=== PATIENT | male | born 1970 | race Caucasian/White ===

== ENCOUNTER 2016-12-12 12:54 | Emergency (ER) | payer OTHER ==
[~2016-12-12] VITALS: Ht 172.7 cm; Wt 68.0 kg
[~2016-12-12 12:54] MED LIST: CIPRODEX 0.3%-7.5 ML OT; KEFLEX500 MG PO; NOVOLIN 701 UNIT/0.0 SC; TRAMADOL HCL50 MG PO
[2016-12-12] MEDS ORDERED: Motrin,Rufen800 MG PO (15:01)
== END 2016-12-12 15:06 | disposition home or self-care (01) ==
LOC: ED 12:54
DX: S80.01XA Contusion of right knee, initial encounter (principal); F17.200 Nicotine dependence, unspecified, uncomplicated; Z88.1 Allergy status to other antibiotic agents; Z88.8 Allergy status to other drugs, medicaments and biological substances; Z79.4 Long term (current) use of insulin; W18.00XA Striking against unspecified object with subsequent fall, initial encounter; Y93.89 Activity, other specified; Y92.9 Unspecified place or not applicable; Y99.9 Unspecified external cause status

== ENCOUNTER 2017-09-29 10:42 | Emergency (ER) | payer BC ==
[~2017-09-29] VITALS: Ht 175.2 cm
[~2017-09-29 10:42] MED LIST changes: +Motrin,Rufen800 MG PO
[2017-09-29 11:39] LABS: HEMATOCRIT 45.1 % (42.0-52.0); HEMOGLOBIN 14.5 g/dl (14.0-18.0); MEAN CELL VOLUME 86.1 fl (80.0-94.0); MEAN CORPUSCULAR HGB 27.7 pg (27.0-31.0); MEAN CORPUSCULAR HGB CONC 32.2 g/dl (33.0-37.0); MEAN PLATELET VOLUME 10.4 fl (9.6-12.3); PLATELET COUNT AUTOMATED 121 10*3/uL (130-400); RED BLOOD COUNT 5.24 10*6/uL (4.50-5.90); RED CELL DISTRI WIDTH 12.3 % (0-14.5); WHITE BLOOD COUNT 5.2 10*3/uL (4.8-10.8)
[2017-09-29 11:51] LABS: ALBUMIN 3.5 gm/dl (3.1-4.5); ALKALINE PHOSPHATASE 85 U/L (45-117); BUN 11 mg/dl (7-24); CHLORIDE 100 mmol/L (98-107); CREATININE 0.94 mg/dL (0.70-1.30); SGOT/AST 31 IU/L (3-35); SGPT/ALT 61 U/L (12-78); SODIUM 134 mmol/L (136-145); TOTAL PROTEIN 7.7 gm/dL (6.4-8.2)
[2017-09-29 12:01] LABS: TOTAL CELLS COUNTED 100 #CELLS
[2017-09-29 12:02] LABS: BURR CELLS FEW; PLATELET SUFFICIENCY LOW (NORMAL)
[2017-09-29] MEDS ORDERED: PREDNISONE20 M1 PO (13:09)
[2017-09-29] MEDS ORDERED: DOXYCYCLINE100 M3 PO ×2 (13:09→13:10)
[2017-09-29] MEDS ORDERED: TESSALON PERLE100 M1 PO (13:09)
[2017-09-29] MEDS ORDERED: PROVENTIL HFA6.7 GM INH (13:09)
== END 2017-09-29 13:21 | disposition home or self-care (01) ==
LOC: ED 10:42
PROVIDERS: Physician Assistant
DX: J44.1 Chronic obstructive pulmonary disease with (acute) exacerbation (principal); J40 Bronchitis, not specified as acute or chronic; Z79.899 Other long term (current) drug therapy; Z88.8 Allergy status to other drugs, medicaments and biological substances; Z88.1 Allergy status to other antibiotic agents

== ENCOUNTER 2018-03-08 17:08 | Emergency (ER) | payer BC ==
[~2018-03-08] VITALS: Ht 175.2 cm; Wt 74.8 kg
[~2018-03-08 17:08] MED LIST changes: +DOXYCYCLINE100 M3 PO; +PREDNISONE20 M1 PO; +PROVENTIL HFA6.7 GM INH; +TESSALON PERLE100 M1 PO
[2018-03-08 17:54] LABS: BASO % 0.4 % (0.0-1.0); EOS # 0.1 10*3/uL (0.0-0.4); EOS % 0.7 % (1.0-4.0); HEMATOCRIT 43.5 % (42.0-52.0); HEMOGLOBIN 14.8 g/dl (14.0-18.0); LYMPH # 1.8 10*3/uL (1.3-4.4); LYMPH % 26.7 % (27.0-41.0); MEAN CELL VOLUME 84.5 fl (80.0-94.0); MEAN CORPUSCULAR HGB 28.7 pg (27.0-31.0); MEAN PLATELET VOLUME 9.2 fl (9.6-12.3); MONO # 0.7 10*3/uL (0.1-1.0); MONO % 10.1 % (3.0-9.0); NEUT # 4.1 10*3/uL (2.3-7.9); NEUT % 61.8 % (47.0-73.0); PLATELET COUNT AUTOMATED 229 10*3/uL (130-400); RED BLOOD COUNT 5.15 10*6/uL (4.50-5.90); WHITE BLOOD COUNT 6.7 10*3/uL (4.8-10.8)
[2018-03-08 18:06] LABS: ACT PARTIAL THROMBO TIME 22.3 SECONDS (20.8-31.5)
[2018-03-08 18:09] LABS: ALBUMIN 4.2 gm/dl (3.1-4.5); ALKALINE PHOSPHATASE 88 U/L (45-117); BUN 13 mg/dl (7-24); CHLORIDE 98 mmol/L (98-107); CREATININE 0.99 mg/dL (0.70-1.30); LIPASE 77 U/L (73-393); POTASSIUM 4.4 mmol/L (3.5-5.1); SGOT/AST 32 IU/L (3-35); SGPT/ALT 74 U/L (12-78); SODIUM 135 mmol/L (136-145); TOTAL PROTEIN 8.1 gm/dL (6.4-8.2)
[2018-03-08] MEDS ORDERED: Zofran4 MG SL (18:31)
[2018-03-08 19:23] LABS: BILIRUBIN NEGATIVE (NEGATIVE); BLOOD NEGATIVE (NEGATIVE); CLARITY CLEAR (CLEAR); COLOR YELLOW (YELLOW); GLUCOSE NEGATIVE (NEGATIVE); KETONE NEGATIVE (NEGATIVE); LEUKO ESTERASE NEGATIVE (NEGATIVE); NITRITE NEGATIVE (NEGATIVE); UROBILINOGEN 0.2 E.U./dl (0.2-1.0); WBC 0-2 wbc/hpf (0-5)
== END 2018-03-08 19:45 | disposition home or self-care (01) ==
LOC: ED 17:08
PROVIDERS: Nurse Practitioner Family
DX: K52.9 Noninfective gastroenteritis and colitis, unspecified (principal); R10.13 Epigastric pain; R10.12 Left upper quadrant pain; Z88.1 Allergy status to other antibiotic agents; Z88.8 Allergy status to other drugs, medicaments and biological substances; Z79.899 Other long term (current) drug therapy

== ENCOUNTER 2018-05-24 10:51 | Inpatient (IN) | payer BC ==
[2018-05-24] VITALS (7 sets, daily range): BP systolic 117–146; BP diastolic 70–80
[~2018-05-24] VITALS: Ht 175.3 cm; Wt 70.8 kg
--- NOTE | ~2018-05-24 | EKG ---
[place], [place] ELECTROCARDIOGRAM REPORT NAME: STELLA SALMON UNIT #: [id number] ROOM: 404 DOCTOR: KIRSTY DRAFT REPORT BIRTHDATE: [birth year] [facility] Test Date: 2018-05-24 Test Time: 11:15:41 Pat Name: STELLA SALMON Department: Room: 404 Gender: M Rn Endocrinology: : 1970 Requested By: MARYANN KRISHNA Order Number: [id number] Reading MD: Ha Burns MD Measurements Intervals [place] Rate: 96 P: 55 [place]: 147 QRS: 76 QRSD: 86 T: 53 QT: 335 QTc: 424 Interpretive Statements Sinus rhythm ST elev, probable normal early repol pattern Electronically Signed On 05-24-2018 18:21:23 PST by Ha Burns MD CM:EKGRPT:ELECTROCARDIOGRAM REPORT [id number] 1821 MARYANN TOWNSEND DRAFT REPORT MARYANN KRISHNA DO
--- NOTE | ~2018-05-24 | EKG ---
[place], [place] ELECTROCARDIOGRAM REPORT NAME: STELLA SALMON UNIT #: [id number] ROOM: 404 DOCTOR: KIRSTY DRAFT REPORT BIRTHDATE: [birth year] [facility] Test Date: 2018-05-24 Test Time: 19:01:02 Pat Name: STELLA SALMON Department: Room: [facility] Gender: M Pot Fireman: Hilary Mack : 1970 Requested By: ADELFO SAWYER Order Number: [id number] Reading MD: Ha Burns MD Measurements Intervals [place] Rate: 67 P: 53 CT: 155 QRS: 66 QRSD: 86 T: 49 QT: 376 QTc: 397 Interpretive Statements Sinus rhythm No change from earlier ECG this date Electronically Signed On 05-24-2018 18:31:42 PST by Ha Burns MD CM:EKGRPT:ELECTROCARDIOGRAM REPORT 00 1831 ADELFO TOWNSEND DRAFT REPORT ADELFO SAWYER DO
--- NOTE | ~2018-05-24 | EKG ---
[place], [place] ELECTROCARDIOGRAM REPORT NAME: STELLA SALMON UNIT #: [id number] ROOM: 404 DOCTOR: KIRSTY DRAFT REPORT BIRTHDATE: [birth year] [facility] Test Date: 2018-05-24 Test Time: 16:49:00 Pat Name: STELLA SALMON Department: Room: [facility] 1 Gender: M Vocational Examiner: LONNIE : 1970 Requested By: ADELFO SAWYER Order Number: [id number] Reading MD: Ha Burns MD Measurements Intervals [place] Rate: 67 P: 59 [place]: 150 QRS: 68 QRSD: 92 T: 58 QT: 386 QTc: 408 Interpretive Statements Sinus rhythm No change from earlier ECG this date Electronically Signed On 05-24-2018 18:29:13 PST by Ha Burns MD CM:EKGRPT:ELECTROCARDIOGRAM REPORT [id number] 1829 ADELFO TOWNSEND DRAFT REPORT ADELFO SAWYER DO
[~2018-05-24 10:51] MED LIST changes: +Zofran4 MG SL
[2018-05-24] MEDS ORDERED: TRULICITY0.75 MG/0. SC (11:08)
[2018-05-24] MEDS ORDERED: PANTOPRAZOLE SO40 MG PO (11:10)
[2018-05-24 11:25] LABS: BASO % 0.6 % (0.0-1.0); EOS # 0.1 10*3/uL (0.0-0.4); HEMATOCRIT 46.8 % (42.0-52.0); HEMOGLOBIN 15.7 g/dl (14.0-18.0); LYMPH # 1.8 10*3/uL (1.3-4.4); LYMPH % 24.7 % (27.0-41.0); MEAN CELL VOLUME 85.9 fl (80.0-94.0); MEAN CORPUSCULAR HGB 28.8 pg (27.0-31.0); MEAN CORPUSCULAR HGB CONC 33.5 g/dl (33.0-37.0); MEAN PLATELET VOLUME 9.9 fl (9.6-12.3); MONO # 0.6 10*3/uL (0.1-1.0); MONO % 8.7 % (3.0-9.0); NEUT # 4.7 10*3/uL (2.3-7.9); NEUT % 64.7 % (47.0-73.0); PLATELET COUNT AUTOMATED 212 10*3/uL (130-400); RED BLOOD COUNT 5.45 10*6/uL (4.50-5.90); RED CELL DISTRI WIDTH 11.7 % (0-14.5); WHITE BLOOD COUNT 7.3 10*3/uL (4.8-10.8)
[2018-05-24 11:34] LABS: ACT PARTIAL THROMBO TIME 22.4 SECONDS (20.8-31.5)
[2018-05-24 11:41] LABS: ALBUMIN 4.1 gm/dl (3.1-4.5); ALKALINE PHOSPHATASE 92 U/L (45-117); BUN 15 mg/dl (7-24); CHLORIDE 102 mmol/L (98-107); CREATININE 1.16 mg/dL (0.70-1.30); LIPASE 71 U/L (73-393); SGOT/AST 27 IU/L (3-35); SGPT/ALT 58 U/L (12-78); SODIUM 137 mmol/L (136-145); TOTAL PROTEIN 7.9 gm/dL (6.4-8.2)
[2018-05-24 11:42] LABS: TROPONIN I < 0.015 ng/ml (<0.045)
[2018-05-24 19:07] LABS: BILIRUBIN NEGATIVE (NEGATIVE); BLOOD NEGATIVE (NEGATIVE); CLARITY CLEAR (CLEAR); COLOR YELLOW (YELLOW); GLUCOSE NEGATIVE (NEGATIVE); KETONE NEGATIVE (NEGATIVE); LEUKO ESTERASE NEGATIVE (NEGATIVE); NITRITE NEGATIVE (NEGATIVE); UROBILINOGEN 0.2 E.U./dl (0.2-1.0)
[2018-05-24 19:13] LABS: BACTERIA 1+; RBC 0-2 rbc/hpf (0-2)
[2018-05-25] VITALS: BP 102/60
[2018-05-25 06:43] LABS: BASO # 0.1 10*3/uL (0.0-0.1); BASO % 1.3 % (0.0-1.0); EOS # 0.1 10*3/uL (0.0-0.4); EOS % 1.9 % (1.0-4.0); HEMOGLOBIN 13.2 g/dl (14.0-18.0); MEAN CELL VOLUME 87.1 fl (80.0-94.0); MEAN CORPUSCULAR HGB 28.8 pg (27.0-31.0); MEAN PLATELET VOLUME 10.5 fl (9.6-12.3); MONO # 0.5 10*3/uL (0.1-1.0); MONO % 9.4 % (3.0-9.0); NEUT # 2.2 10*3/uL (2.3-7.9); NEUT % 46.2 % (47.0-73.0); PLATELET COUNT AUTOMATED 178 10*3/uL (130-400); RED BLOOD COUNT 4.59 10*6/uL (4.50-5.90); RED CELL DISTRI WIDTH 11.5 % (0-14.5); WHITE BLOOD COUNT 4.8 10*3/uL (4.8-10.8)
[2018-05-25 07:14] LABS: ACT PARTIAL THROMBO TIME 23.6 SECONDS (20.8-31.5)
[2018-05-25 07:17] LABS: ALBUMIN 3.1 gm/dl (3.1-4.5); ALKALINE PHOSPHATASE 70 U/L (45-117); BUN 15 mg/dl (7-24); CHLORIDE 111 mmol/L (98-107); CHOLESTEROL 150 mg/dL (<200); CREATININE 0.85 mg/dL (0.70-1.30); FREE T4 0.92 ng/dl (0.76-1.46); HDL CHOLESTEROL 27 mg/dl (40-60); LDL CHOLESTEROL 102 mg/dL (9-159); PHOSPHOROUS 2.9 mg/dL (2.5-4.9); POTASSIUM 4.3 mmol/L (3.5-5.1); SGOT/AST 19 IU/L (3-35); SGPT/ALT 43 U/L (12-78); SODIUM 142 mmol/L (136-145); TOTAL PROTEIN 6.2 gm/dL (6.4-8.2); TRIGLYCERIDES 103 mg/dl (<150); VLDL CHOLESTEROL 21 mg/dL (6-40)
[2018-05-25 07:36] LABS: VITAMIN D, 25-HYDROXY 14.6 ng/mL (30-100)
[2018-05-25 11:57] VITALS: BP 110/63
== END 2018-05-25 13:27 | disposition home or self-care (01) | DRG 205 ==
LOC: ED 10:51 → EDHOLD 15:26 → 4E 15:26
PROVIDERS: Emergency Medicine; Internal Medicine
DX: M94.0 Chondrocostal junction syndrome [Tietze] (principal); J18.9 Pneumonia, unspecified organism; E87.2 Acidosis; R11.2 Nausea with vomiting, unspecified; R19.7 Diarrhea, unspecified; H66.90 Otitis media, unspecified, unspecified ear; E83.41 Hypermagnesemia; K21.9 Gastro-esophageal reflux disease without esophagitis; F41.9 Anxiety disorder, unspecified; E78.5 Hyperlipidemia, unspecified; R10.84 Generalized abdominal pain; E86.0 Dehydration; D72.810 Lymphocytopenia; E11.65 Type 2 diabetes mellitus with hyperglycemia; Z87.891 Personal history of nicotine dependence; Z82.49 Family history of ischemic heart disease and other diseases of the circulatory system; Z81.1 Family history of alcohol abuse and dependence; Z88.8 Allergy status to other drugs, medicaments and biological substances; Z79.899 Other long term (current) drug therapy; Z79.4 Long term (current) use of insulin

== ENCOUNTER 2019-06-19 13:56 | Emergency (ER) | payer BC ==
[~2019-06-19] VITALS: Ht 175.2 cm; Wt 72.6 kg
[~2019-06-19 13:56] MED LIST changes: +PANTOPRAZOLE SO40 MG PO; +TRULICITY0.75 MG/0. SC
[2019-06-19] MEDS ORDERED: PREDNISONE20 M1 PO (16:02)
== END 2019-06-19 16:16 | disposition home or self-care (01) ==
LOC: ED 13:56
DX: J44.1 Chronic obstructive pulmonary disease with (acute) exacerbation (principal); R11.0 Nausea; Z88.1 Allergy status to other antibiotic agents; Z88.8 Allergy status to other drugs, medicaments and biological substances; Z79.899 Other long term (current) drug therapy; Z87.891 Personal history of nicotine dependence

== ENCOUNTER → 2019-07-06 | Outpatient (CLI) | payer BC ==
[2019-07-07 10:08] LABS: CREATININE,URINE 73.8 mg/dL (Not Estab.); MICRO ALBUMIN/CRE RATIO <4 (0-29)
== END | disposition home or self-care (01) ==
LOC: LAB 09:56
PROVIDERS: Internal Medicine Endocrinology, Diabetes & Metabolism
DX: E11.9 Type 2 diabetes mellitus without complications (principal)

== ENCOUNTER → 2021-01-02 | Outpatient (CLI) | payer BC | END | disposition home or self-care (01) | LOC: US 08:26 | PROVIDERS: ATTEND Physician Assistant | DX: R63.4 Abnormal weight loss (principal) ==

== ENCOUNTER → 2021-09-08 | Outpatient (CLI) | payer BC | END | disposition home or self-care (01) | LOC: CARD 08:00 | PROVIDERS: ATTEND Physician Assistant | DX: R00.2 Palpitations (principal) ==

== ENCOUNTER → 2021-09-22 | Outpatient (CLI) | payer BC | END | disposition home or self-care (01) | LOC: CT 08:45 | PROVIDERS: ATTEND Physician Assistant | DX: J43.9 Emphysema, unspecified (principal); R63.4 Abnormal weight loss; F17.210 Nicotine dependence, cigarettes, uncomplicated ==

== ENCOUNTER → 2021-09-28 | Outpatient (CLI) | payer BC ==
[2021-09-30 08:08] LABS: THYROID STIM IMMUNOGLOBULIN 1.06 IU/L (0.00-0.55)
[2021-09-30 15:07] LABS: GLUTAMIC ACID DECARB AB <5.0 U/mL (0.0-5.0)
== END | disposition home or self-care (01) ==
LOC: LAB 09:15
PROVIDERS: ATTEND Internal Medicine Endocrinology, Diabetes & Metabolism
DX: E05.90 Thyrotoxicosis, unspecified without thyrotoxic crisis or storm (principal); E11.65 Type 2 diabetes mellitus with hyperglycemia; E55.9 Vitamin D deficiency, unspecified; E27.40 Unspecified adrenocortical insufficiency